=== PATIENT | male | born 1935 | race Caucasian/White ===

== ENCOUNTER 2017-10-21 06:07 | Inpatient (IN) | payer OTHER, MEDICARE ==
[2017-10-21] MEDS: SOD CHLORIDE 0.9% 1,000 ML IV (06:00)
[2017-10-21] MEDS ORDERED: GELATIN SIZE 100 SPONGE (06:47)
[2017-10-21] MEDS ORDERED: BUPIVACAINE 0.25% (MPF) 30 ML INJ (06:47)
[2017-10-21] MEDS ORDERED: HETASTARCH 6% NACL 500 ML BAG (07:00)
[2017-10-21] MEDS: LACTATED RINGER'S 1,000 ML IV (07:15)
[2017-10-21] MEDS ORDERED: PROPOFOL 20 ML (07:30)
[2017-10-21] MEDS ORDERED: CEFAZOLIN 1 GM INJ ×2 (07:30→18:56)
[2017-10-21] MEDS ORDERED: ROCURONIUM 50 MG INJ ×3 (07:30→11:59)
[2017-10-21] MEDS ORDERED: MIDAZOLAM 1 MG/ML 2 ML INJ (07:31)
[2017-10-21] MEDS ORDERED: PHENYLephrine (100 MCG/ML) 5ML SYG ×2 (07:40→09:59)
[2017-10-21] MEDS: CEFAZOLIN 2 GM/50 ML (PMX) 50 ML (FOR WT < 120 KG) IVPB (08:00)
[2017-10-21] MEDS: POLYMYXIN/BACITRACIN 1L IRRIG (09:02)
[2017-10-21] MEDS: BUPIVACAINE 0.5%/EPI (SDV) 30 ML INJ INJ (09:02)
[2017-10-21] MEDS: THROMBIN 5000 UNIT VIAL (09:06)
[2017-10-21] MEDS ORDERED: FUROSEMIDE 20 MG INJ (09:27)
[2017-10-21] MEDS ORDERED: ONDANSETRON 4 MG INJ (09:40)
[2017-10-21] MEDS ORDERED: DEXAMETHASONE 4 MG/ML 1 ML INJ (09:40)
[2017-10-21] MEDS ORDERED: METOCLOPRAMIDE 10 MG INJ (09:40)
[2017-10-21] MEDS ORDERED: ACETAMINOPHEN 1000MG/100ML IV 100 ML (09:40)
[2017-10-21] MEDS ORDERED: SUGAMMADEX SODIUM 200 MG/2 ML VIAL IV ×2 (09:41→12:59)
[2017-10-21] MEDS ORDERED: hydrALAzine 20 MG INJ IV (10:00)
[2017-10-21] MEDS ORDERED: OXYCODONE/ACETAMINOPHEN (5/325) TAB PO ×2 (10:00)
[2017-10-21] MEDS ORDERED: FENTAnyl 50 MCG/ML VIAL IV ×3 (10:00)
[2017-10-21] MEDS ORDERED: HYDROmorphONE (0.2 MG/ML) 10ML SYG IV ×3 (10:00)
[2017-10-21] MEDS ORDERED: DIPHENHYDRAMINE 50 MG INJ IV (10:00)
[2017-10-21] MEDS ORDERED: METOCLOPRAMIDE 10 MG INJ IV (10:00)
[2017-10-21] MEDS ORDERED: MEPERIDINE 25 MG INJ IV (10:00)
[2017-10-21] MEDS ORDERED: EPHEDrine SULFATE 50 MG/5 ML SYG IV (10:00)
[2017-10-21] MEDS ORDERED: ONDANSETRON 4 MG INJ IV (10:00)
[2017-10-21] MEDS ORDERED: LABETALOL HCL 20MG INJ IV (10:00)
[2017-10-21] MEDS ORDERED: ACETAMINOPHEN 325 MG TAB PO (14:00)
[2017-10-21] MEDS ORDERED: PROCHLORPERAZINE 10 MG TAB PO (14:00)
[2017-10-21] MEDS ORDERED: NACL 0.9% 3 ML SYG IV (14:00)
[2017-10-21] MEDS: HYDROmorphONE 0.2 MG/ML PCA IV (14:07)
[2017-10-21] MEDS ORDERED: ALBUTEROL HFA 8 GM INHALER INH (14:30)
[2017-10-21] MEDS: CEFAZOLIN 1 GM/50 ML (PMX) 50 ML IVPB (18:03)
[2017-10-21] MEDS: ACCU-CHEK XX (18:03)
[2017-10-21] MEDS: METOCLOPRAMIDE 10 MG TAB PO (18:03)
[2017-10-21] MEDS: TIOTROPIUM 18 MCG CAPSULE INHA DEV INH (19:43)
[2017-10-21] MEDS: INSULIN ASPART [NOVOLOG] 3 ML PEN SC ×2 (19:49→20:54)
[2017-10-21] MEDS: METHADONE 5 MG TAB PO (20:50)
[2017-10-21] MEDS: MONTELUKAST 10 MG TAB PO (20:50)
[2017-10-21] MEDS: ATORVASTATIN 40 MG TAB PO (20:50)
[2017-10-21] MEDS: GABAPENTIN 300 MG CAP PO (20:50)
[2017-10-21] MEDS: TERAZOSIN 2 MG CAP PO (20:53)
[2017-10-21] MEDS: METOPROLOL (XL) 25 MG TAB PO (20:54)
[2017-10-21] MEDS: SALMETEROL/FLUTICASONE 250/50 INHA INH (21:43)
[2017-10-21] MEDS: METHOCARBAMOL 500 MG TAB PO (21:43)
[2017-10-22] MEDS: CEFAZOLIN 1 GM/50 ML (PMX) 50 ML IVPB ×3 (00:19→11:33)
[2017-10-22] MEDS: ACCU-CHEK XX ×4 (02:00→19:32)
[2017-10-22] MEDS: LACTATED RINGER'S 1,000 ML IV (06:00)
[2017-10-22] MEDS: SOD CHLORIDE 0.9% 1,000 ML IV ×2 (06:00→14:01)
[2017-10-22] MEDS: PANTOPRAZOLE (EC) 40 MG TAB PO (06:05)
[2017-10-22 06:25] LABS: HEMOGLOBIN 11.3 g/dl (14.0-18.0)
[2017-10-22 06:57] LABS: ANION GAP 12 (8-16); BLOOD UREA NITROGEN 21 mg/dl (7-20); CALCIUM 7.3 mg/dl (8.4-10.2); CARBON DIOXIDE 29 mmol/L (21-31); CHLORIDE 104 mmol/L (97-110); CREATININE 1.27 mg/dl (0.61-1.24); GLUCOSE 100 mg/dl (70-220); POTASSIUM 3.3 mmol/L (3.5-5.1); SODIUM 142 mmol/L (135-144)
[2017-10-22] MEDS: METOCLOPRAMIDE 10 MG TAB PO ×3 (07:25→16:46)
[2017-10-22] MEDS: INSULIN ASPART [NOVOLOG] 3 ML PEN SC ×4 (07:54→21:00)
[2017-10-22] MEDS: METOPROLOL (XL) 25 MG TAB PO ×2 (08:09→21:00)
[2017-10-22] MEDS: HYDROCHLOROTHIAZIDE 25 MG TAB PO (08:09)
[2017-10-22] MEDS: SALMETEROL/FLUTICASONE 250/50 INHA INH ×2 (08:15→21:56)
[2017-10-22] MEDS: METHOCARBAMOL 500 MG TAB PO ×2 (08:16→21:57)
[2017-10-22] MEDS: LORATADINE 10 MG TAB PO (08:16)
[2017-10-22] MEDS: GABAPENTIN 300 MG CAP PO ×3 (08:16→21:57)
[2017-10-22] MEDS: TIOTROPIUM 18 MCG CAPSULE INHA DEV INH (08:16)
[2017-10-22] MEDS: POTASSIUM CHLORIDE (SR) 20 MEQ TAB PO (16:01)
[2017-10-22] MEDS: HYDROCODONE/APAP (5/325) TAB PO (16:46)
[2017-10-22] MEDS: TERAZOSIN 2 MG CAP PO (21:00)
[2017-10-22] MEDS: MONTELUKAST 10 MG TAB PO (21:56)
[2017-10-22] MEDS: METHADONE 5 MG TAB PO (21:56)
[2017-10-22] MEDS: ATORVASTATIN 40 MG TAB PO (21:57)
[2017-10-23] MEDS: ACCU-CHEK XX ×3 (01:59→13:40)
[2017-10-23] MEDS: HYDROCODONE/APAP (5/325) TAB PO ×3 (03:23→15:23)
[2017-10-23] MEDS: PANTOPRAZOLE (EC) 40 MG TAB PO (05:19)
[2017-10-23] MEDS: INSULIN ASPART [NOVOLOG] 3 ML PEN SC ×2 (07:50→11:40)
[2017-10-23] MEDS: METOCLOPRAMIDE 10 MG TAB PO ×2 (08:37→12:16)
[2017-10-23] MEDS: METHOCARBAMOL 500 MG TAB PO (08:37)
[2017-10-23] MEDS: LORATADINE 10 MG TAB PO (08:37)
[2017-10-23] MEDS: GABAPENTIN 300 MG CAP PO ×2 (08:37→12:16)
[2017-10-23] MEDS: SALMETEROL/FLUTICASONE 250/50 INHA INH (08:38)
[2017-10-23] MEDS: TIOTROPIUM 18 MCG CAPSULE INHA DEV INH (08:38)
[2017-10-23] MEDS: HYDROCHLOROTHIAZIDE 25 MG TAB PO (08:39)
[2017-10-23] MEDS: METOPROLOL (XL) 25 MG TAB PO (08:40)
[2017-10-23 09:41] LABS: ADD UMIC YES; UR ASCORBIC ACID NEGATIVE (NEGATIVE); UR BILIRUBIN (Dip) NEGATIVE (NEGATIVE); UR BLOOD (Dip) 2+ mg/dL (NEGATIVE); UR CLARITY SLIGHTLY CLOUDY (CLEAR); UR COLOR YELLOW (YELLOW); UR GLUCOSE (Dip) NEGATIVE (NEGATIVE); UR KETONES (Dip) NEGATIVE (NEGATIVE); UR LEUKOCYTE ESTERASE (Dip) TRACE Leu/ul (NEGATIVE); UR NITRITE (Dip) NEGATIVE (NEGATIVE); UR RBC > 182 /HPF (0-5); UR SPECIFIC GRAVITY (Dip) 1.014 (1.003-1.030); UR TOTAL PROTEIN (Dip) 1+ mg/dl (NEGATIVE); UR UROBILINOGEN (Dip) NEGATIVE (NEGATIVE); UR WBC 34 /HPF (0-5)
== END 2017-10-23 16:00 | disposition home or self-care (01) | DRG 517 ==
LOC: REC 06:07 → MS1 10-22 20:54 → TEL 16:10
PROVIDERS: Specialist
PROC: 01NB0ZZ Release Lumbar Nerve, Open Approach (ICD-10-PCS; principal; 2017-10-21 07:30)
DX: M48.061 Spinal stenosis, lumbar region without neurogenic claudication (principal); E11.22 Type 2 diabetes mellitus with diabetic chronic kidney disease; I12.9 Hypertensive chronic kidney disease with stage 1 through stage 4 chronic kidney disease, or unspecified chronic kidney disease; N18.2 Chronic kidney disease, stage 2 (mild); E11.43 Type 2 diabetes mellitus with diabetic autonomic (poly)neuropathy; K31.84 Gastroparesis; J44.9 Chronic obstructive pulmonary disease, unspecified; E11.69 Type 2 diabetes mellitus with other specified complication; E78.5 Hyperlipidemia, unspecified; K21.9 Gastro-esophageal reflux disease without esophagitis; N40.1 Benign prostatic hyperplasia with lower urinary tract symptoms; N39.43 Post-void dribbling
CPT/HCPCS: 72100; 80048; 81001; 82962; 85014; 85018; 86850; 86900; 86901; 86920; 87086; 93306; 97116; 97161; 97530